=== PATIENT | female | born 1975 | race Caucasian/White ===

== ENCOUNTER 2019-06-21 10:31 | Emergency (ER) | payer MEDICAID, OTHER ==
[2019-06-21] MEDS ORDERED: KETOROLAC 30 MG/ML VIAL IVP STA (13:26)
[2019-06-21] MEDS ORDERED: SODIUM CHLORIDE 0.9% 1,000 ML IV ONE (13:26)
[2019-06-21] MEDS ORDERED: ONDANSETRON 4 MG/2 ML VIAL IVP STA (13:26)
--- NOTE | 2019-06-21 13:27 | ED Physician Documentation ---
PD HPI HEADACHE - Stated complaint Stated Complaint: HEAD PX/BODY ACHE - Chief complaint Chief Complaint: Neuro - History obtained from History obtained from: Patient (Previously healthy 44-year-old woman without recent travel developed shaking chills and body aches about a week ago, but over the last day or so has developed a severe burning headache on the right side associated with profuse rhinorrhea but no sinus congestion per se. She has not had any fevers. She does have pain radiating down into the neck. She is on her menses.) Review of Systems Ten Systems: 10 systems reviewed and negative Constitutional: reports: Myalgias, Fatigue. denies: Fever, Chills Ears: reports: Ear pain Nose: reports: Rhinorrhea / runny nose Throat: denies: Sore throat Cardiac: denies: Chest pain / pressure, Palpitations Respiratory: reports: Cough. denies: Dyspnea PD PAST MEDICAL HISTORY - Present Medications Home Medications: Ambulatory Orders Medication Instructions Recorded Confirmed Amox/Clav 875/125 [Augmentin] 1 each PO Q12H #20 tablet 06/21/19 Ketorolac [Toradol] 10 mg PO Q6H PRN #15 tablet 06/21/19 Ondansetron Odt [Zofran] 4 mg TL Q6H PRN #10 tablet 06/21/19 predniSONE [Deltasone] 20 mg PO [id number] #21 tab 06/21/19 - Allergies Allergies/Adverse Reactions: Allergies Allergy/AdvReac Type Severity Reaction Status Date / Time No Known Drug Allergies Allergy Verified 06/21/19 10:48 PD ED PE NORMAL - Vitals Vital signs reviewed: Yes - General General: Alert and oriented X 3, No acute distress - HEENT HEENT: PERRL, EOMI, Other (Bilateral serous otitis) - Neck Neck: Other (No meningismus per se but it does hurt with significant neck extension.) - Cardiac Cardiac: RRR, No murmur - Respiratory Respiratory: Other (Mild crackles at the right base) - Abdomen Abdomen: Non tender - Back Back: No CVA TTP, No spinal TTP - Derm Derm: Normal color, Warm and dry - Extremities Extremities: No edema, No calf tenderness / cord - Neuro Neuro: Alert and oriented X 3, Normal speech Results - Vitals Vitals: Vital Signs - 24 hr 06/21/19 06/21/19 06/21/19 10:48 14:32 15:27 Temperature 36.8 C 37.0 C Heart Rate 82 92 72 Respiratory 17 18 18 Rate Blood Pressure 140/72 H 139/79 H 134/83 H O2 Saturation 98 98 94 Oxygen O2 Source Room air - Labs Labs: Microbiology 06/21/19 14:45 CSF Culture - Preliminary Cerebral Spinal Fluid Laboratory Tests 06/21/19 06/21/19 06/21/19 14:00 14:00 14:25 WBC 5.3 RBC 4.14 L Hgb 12.9 Hct 38.5 MCV 93.0 MCH 31.2 H MCHC 33.5 RDW 12.5 Plt Count 212 MPV 9.7 Neut # (Auto) 4.8 Lymph # (Auto) 0.3 L [place] # (Auto) 0.3 Eos # (Auto) 0.0 Baso # (Auto) 0.0 Absolute Nucleated RBC 0.00 Nucleated RBC % 0.0 Sodium 138 Potassium 3.4 L Chloride 104 Carbon Dioxide 23 Anion Gap 11.0 BUN 12 Creatinine 0.5 Estimated GFR (MDRD) 134 Glucose 106 H Lactic Acid 1.5 Calcium 8.8 Total Bilirubin 0.5 AST 26 ALT 38 Alkaline Phosphatase 41 L Total Protein 7.6 Albumin 3.8 Globulin 3.8 Albumin/Globulin Ratio 1.0 Lipase 31 HCG, Quant CSF Color CSF Clarity Xanthrochromic CSF WBC CSF RBC CSF Cell Count Tube # CSF Glucose CSF Total Protein 06/21/19 06/21/19 14:25 14:45 WBC RBC Hgb Hct MCV MCH MCHC RDW Plt Count MPV Neut # (Auto) Lymph # (Auto) [place] # (Auto) Eos # (Auto) Baso # (Auto) Absolute Nucleated RBC Nucleated RBC % Sodium Potassium Chloride Carbon Dioxide Anion Gap BUN Creatinine Estimated GFR (MDRD) Glucose Lactic Acid Calcium Total Bilirubin AST ALT Alkaline Phosphatase Total Protein Albumin Globulin Albumin/Globulin Ratio Lipase HCG, Quant < 0.60 CSF Color COLORLESS CSF Clarity CLEAR Xanthrochromic ABSENT CSF WBC 0 CSF RBC 0 CSF Cell Count Tube # CSF TUBE# 3 CSF Glucose 61 CSF Total Protein 20 Procedures - Lumbar Puncture Position: Sitting Location: L3-L4 Anesthesia: Local lidocaine CSF: Clear Other: Sterile prep and drape, Patient tolerated well, No complications PD MEDICAL DECISION MAKING - ED course ED course: 44-year-old woman with headache, sinus congestion. That said the headache seems out of proportion to a simple sinus infection and the location is concerning for more of a meningitic process. As such a work-up for that was done with negative LP and CT. She did have some evidence of sinus thickening on the CT though. Feeling better after Toradol and Zofran. Departure - Departure Disposition: 01 Home, Self Care Clinical Impression: Headache Qualifiers: Headache type: unspecified Headache chronicity pattern: acute headache Intractability: not intractable Qualified Code(s): R51 - Headache Sinusitis Qualifiers: Sinusitis location: maxillary Chronicity: acute Recurrence: non-recurrent Qualified Code(s): J01.00 - Acute maxillary sinusitis, unspecified Condition: Good Record reviewed to determine appropriate education?: Yes Instructions: ED Sinusitis Abx Tx Prescriptions: Amox/Clav 875/125 [Augmentin] 1 each PO Q12H #20 tablet Ketorolac [Toradol] 10 mg PO Q6H PRN #15 tablet PRN Reason: Headache Ondansetron Odt [Zofran] 4 mg TL Q6H PRN #10 tablet PRN Reason: Nausea / Vomiting predniSONE [Deltasone] 20 mg PO [id number] #21 tab Comments: You were seen today for bad headache and vomiting, your blood work and spinal tap were thankfully normal. There is evidence of mucosal thickening on the head CT, and this is likely because. We are trying some antibiotics and steroids in addition to the Toradol and Zofran which she got good Relief from here. Return for new or concerning symptoms and follow-up with your doctor next week regardless.. Forms: Activity restrictions Discharge Date/Time: 06/21/19 15:47
[2019-06-21 14:09] LABS: BASOPHILS % (AUTO) 0.2 %; EOSINOPHILS % (AUTO) 0.2 %; HGB - HEMOGLOBIN 12.9 g/dL (12.0-16.0); LYMPHOCYTES # (AUTO) 0.3 10^3/uL (1.5-3.5); LYMPHOCYTES % (AUTO) 4.7 %; MEAN CORPUSCULAR HEMOGLOBIN 31.2 pg (27.0-31.0); MEAN CORPUSCULAR HGB CONC 33.5 g/dL (32.0-36.0); MEAN PLATELET VOLUME 9.7 fL (7.9-10.8); MONOCYTES # (AUTO) 0.3 10^3/uL (0.0-1.0); MONOCYTES % (AUTO) 5.3 %; NEUTROPHILS # (AUTO) 4.8 10^3/uL (1.5-6.6); NEUTROPHILS % (AUTO) 89.4 %; PLT - PLATELET COUNT 212 10^3/uL (130-450); RED BLOOD COUNT 4.14 10^6/uL (4.20-5.40); RED CELL DISTRIBUTION WIDTH 12.5 % (12.0-15.0); WHITE BLOOD COUNT 5.3 x10^3/uL (4.8-10.8)
--- NOTE | 2019-06-21 14:20 | CT Report ---
Reason: headache Procedure Date: 06/21/2019 Accession Number: [id number] / [id number] Procedure: CT - HEAD WO CPT Code: Final Report FULL RESULT: EXAM: CT HEAD EXAM DATE: 06/21/2019 02:13 PM. CLINICAL HISTORY: Headache. COMPARISON: None. TECHNIQUE: Multiaxial CT images were obtained from the foramen magnum to the vertex. Reformats: Sagittal and coronal. IV contrast: None. In accordance with CT protocol optimization, one or more of the following dose reduction techniques were utilized for this exam: automated exposure control, adjustment of mA and/or KV based on patient size, or use of iterative reconstructive technique. FINDINGS: Parenchyma: No intraparenchymal hemorrhage. No evidence of mass, midline shift, or CT findings of infarction. Orozco-white differentiation is distinct. Extraaxial Spaces: Normal for age. No subdural or epidural collections identified. Ventricles: Normal in size and position. Sinuses and Orbits: Mild mucosal thickening ethmoid, maxillary sinuses. Imaged orbits, and mastoids show no significant abnormality. Bones: No evidence of fracture or calvarial defect. Other: None. IMPRESSION: Normal head CT. Mild mucosal thickening ethmoid, maxillary sinuses RADIA
--- NOTE | 2019-06-21 14:22 | XRAY Report ---
Reason: abn breath sounds, cough Procedure Date: 06/21/2019 Accession Number: [id number] / [id number] Procedure: XR - Chest 2 View X-Ray CPT Code: 72945 Final Report FULL RESULT: EXAM: CHEST RADIOGRAPHY EXAM DATE: 06/21/2019 02:08 PM. CLINICAL HISTORY: Abn breath sounds, cough. COMPARISON: None available. TECHNIQUE: 2 views. FINDINGS: Heart size is normal. No consolidation, pleural effusion, or pneumothorax. IMPRESSION: No acute cardiopulmonary findings. RADIA
[2019-06-21 14:46] LABS: ALBUMIN 3.8 g/dL (3.2-5.5); BILIRUBIN,TOTAL 0.5 mg/dL (0.2-1.0); CALCIUM 8.8 mg/dL (8.5-10.3); CREATININE 0.5 mg/dL (0.4-1.0); TOTAL PROTEIN 7.6 g/dL (6.7-8.2)
[2019-06-21 15:05] LABS: CSF - GLUCOSE 61 mg/dL (45-70)
[2019-06-21 15:15] LABS: CLARITY,CSF CLEAR (CLEAR); COLOR,CSF COLORLESS (COLORLESS); CSF TUBE # CSF TUBE# 3; CSF XANTHOCHROMIA ABSENT (ABSENT); RED BLOOD CELL,CSF 0 /mm^3 (0-1); WHITE BLOOD CELL,CSF 0 /mm^3 (0-5)
[2019-06-21 15:28] VITALS: BP 134/83
== END 2019-06-21 15:47 | disposition home or self-care (01) ==
LOC: ED 10:31
DX: R51 Headache (principal); J01.00 Acute maxillary sinusitis, unspecified
CPT/HCPCS: 36415; 62270; 70450; 71046; 80053; 82945; 83605; 83690; 84157; 84702; 85025; 87040; 87070; 87205; 89051

== ENCOUNTER 2020-02-01 16:36 | Outpatient (CLI) | payer OTHER | END 2020-02-01 16:37 | disposition home or self-care (01) | LOC: COV 16:36 | PROVIDERS: ATTEND Family Medicine | DX: M79.10 Myalgia, unspecified site (principal); R68.83 Chills (without fever); Z20.828 Contact with and (suspected) exposure to other viral communicable diseases ==